=== PATIENT | female | born 1970 | race African-American/Black ===

== ENCOUNTER 2022-02-14 07:27 | Observation (INO) ==
[2022-02-14] MEDS ORDERED: SODIUM CHLORIDE 0.9% 1,000 ML IV STA (08:16)
[2022-02-14 08:23] LABS: Basophils # 0.1 10*3/uL (0.0-0.2); Basophils % 0.6 % (0.0-0.8); Eosinophils # 0.1 10*3/uL (0.0-0.87); Eosinophils % 0.7 % (0.00-10.9); Hematocrit 47.1 VOL% (35.7-47.0); Hemoglobin 15.1 GM/DL (12.0-16.0); Immature Granulocytes % 0.5 %; Immature Granulocytes Absolute 0.04 #; Lymphocytes # 2.5 10*3/uL (1.4-4.0); Mean Corpuscular HGB Conc 32.1 GM/DL (32-36); Mean Platelet Volume 10.9 FL (9.6-12.0); Monocytes # 0.4 10*3/uL (0.11-0.8); Monocytes % 4.6 % (1.7-12.7); Neutrophils % 63.6 % (38.7-73.9); Platelet Count 212 T/CUMM (130-400); Red Blood Count 5.89 MC/CUMM (3.8-5.5); Red Cell Distribution Width 15.9 % (9.3-17.3); White Blood Count 8.4 T/CUMM (4-12)
[2022-02-14 08:39] LABS: Bilirubin,Total 0.4 MG/DL (0.20-1.00); Calcium 10.3 MG/DL (8.5-10.1); Osmolality,Calculated 293.9 MOS/KG (273-304); Potassium 4.5 MMOL/L (3.5-5.1); Total Protein 8.6 G/DL (6.4-8.2)
[2022-02-14 08:45] LABS: Bacteria,Urine Occasional /HPF (Few); Mucus,Urine Occasional /LPF (Occasional); Squamous Epithelial Cell,Urine Occasional /HPF (0-10); Urine Appearance Clear (Clear); Urine Color Light Yellow (Yellow); Urine Specific Gravity < 1.005 (1.001-1.035); Urine pH 5.5 (4.5-8.0)
[2022-02-14 08:46] LABS: Bilirubin,Urine Negative (Negative); Blood, Urine Trace mg/dL (Negative); Glucose,Urine (UA) 500 mg/dL (Negative); Ketones,Urine Trace mg/dL (Negative); Nitrite,Urine Negative (Negative); Protein,Urine Negative (Negative); Urine Urobilinogen 0.2 eU/dL (<2.0)
[2022-02-14] MEDS ORDERED: INSULIN LISPRO 100 UNIT/ML SUBCUT STA (09:32)
[2022-02-14] MEDS ORDERED: ACETAMINOPHEN 325 MG TABLET PO PRN (09:59)
[2022-02-14] MEDS ORDERED: GLUCAGON 1 MG VIAL IM PRN ×2 (09:59→10:03)
[2022-02-14] MEDS ORDERED: ONDANSETRON 4 MG/2 ML VIAL IV PRN (09:59)
[2022-02-14] MEDS ORDERED: SODIUM CHLORIDE 0.9% 1,000 ML IV ONE (10:03)
[2022-02-14] MEDS ORDERED: DEXTROSE 10% 250 ML BAG IV PRN ×2 (10:09→10:10)
[2022-02-14] MEDS: SODIUM CHLORIDE 0.9% 1,000 ML IV SCH ×2 (10:54→20:33)
[2022-02-14 11:28] LABS: Calcium 9.9 MG/DL (8.5-10.1); Osmolality,Calculated 291.8 MOS/KG (273-304); Potassium 4.3 MMOL/L (3.5-5.1)
[2022-02-14 11:37] LABS: Risk Ratio 10.42; Thyroid Stimulating Hormone 1.26 uIU/ml (0.358-3.74); VLDL Cholesterol 52.4 MG/DL
[2022-02-14] MEDS: INSULIN LISPRO 100 UNIT/ML SUBCUT SCH ×3 (12:42→20:29)
[2022-02-14] MEDS: MAGNESIUM OXIDE 400 MG TABLET PO SCH (20:35)
[2022-02-14] MEDS ORDERED: ATORVASTATIN 20 MG TABLET PO SCH (21:00)
[2022-02-15] MEDS: SODIUM CHLORIDE 0.9% 1,000 ML IV SCH (05:20)
[2022-02-15 06:30] LABS: Basophils # 0.1 10*3/uL (0.0-0.2); Basophils % 0.7 % (0.0-0.8); Eosinophils # 0.1 10*3/uL (0.0-0.87); Eosinophils % 0.9 % (0.00-10.9); Hematocrit 43.6 VOL% (35.7-47.0); Hemoglobin 13.8 GM/DL (12.0-16.0); Immature Granulocytes % 0.3 %; Immature Granulocytes Absolute 0.03 #; Lymphocytes # 3.8 10*3/uL (1.4-4.0); Mean Corpuscular HGB Conc 31.7 GM/DL (32-36); Mean Corpuscular Volume 81.3 FL (87-102); Mean Platelet Volume 11.4 FL (9.6-12.0); Monocytes # 0.4 10*3/uL (0.11-0.8); Monocytes % 4.1 % (1.7-12.7); Platelet Count 195 T/CUMM (130-400); Red Blood Count 5.36 MC/CUMM (3.8-5.5); Red Cell Distribution Width 15.9 % (9.3-17.3); White Blood Count 8.9 T/CUMM (4-12)
[2022-02-15 06:52] LABS: Calcium 9.3 MG/DL (8.5-10.1); Osmolality,Calculated 289.5 MOS/KG (273-304); Potassium 3.8 MMOL/L (3.5-5.1)
[2022-02-15 06:53] LABS: Hypochromia Slight; Lymphocytes 46 % (20-55); Microcytosis Slight; Platelet Estimate Adequate; Total Cells Counted 100
[2022-02-15 08:17] VITALS: BP 162/98
[2022-02-15] MEDS ORDERED: amLODIPine 10 MG TABLET PO SCH (09:00)
[2022-02-15] MEDS ORDERED: PANTOPRAZOLE 40 MG TABLET PO SCH (09:00)
[2022-02-15] MEDS ORDERED: hydroCHLOROthiazide 12.5 MG CAPSULE PO SCH (09:00)
[2022-02-15] MEDS: INSULIN LISPRO 100 UNIT/ML SUBCUT SCH (09:44)
[2022-02-15] MEDS: MAGNESIUM OXIDE 400 MG TABLET PO SCH (09:45)
== END 2022-02-15 10:04 | disposition home or self-care (01) ==
LOC: N.ED 07:27 → N.EDINP 07:27 → N.2W 11:32
PROVIDERS: ADMIT Internal Medicine; ATTEND Internal Medicine